=== PATIENT | male | born 1980 | race African-American/Black ===

== ENCOUNTER 2017-03-31 18:49 | Emergency (ER) | payer OTHER ==
[~2017-03-31] VITALS: Ht 167.6 cm; Wt 64.0 kg
[~2017-03-31 18:49] MED LIST: IBUP-1542 PO; MED4DP PO
[2017-03-31 18:57] VITALS: Ht 167.6 cm; Wt 64.0 kg
[2017-03-31] MEDS ORDERED: TETRACAINE 0.5% 4 ML OPH RIGHT EYE ONE (20:30)
[2017-03-31] MEDS ORDERED: OXYC-279 PO (20:44)
[2017-03-31] MEDS ORDERED: TBR.3OO RIGHT EYE (20:44)
[2017-03-31] MEDS ORDERED: ABAC1TAB12 PO (20:45)
[2017-03-31] MEDS ORDERED: AMOX1TAB10 PO (20:46)
[2017-03-31 21:05] VITALS: BP 119/76; PULSE 95; RESP 18; TEMP 98.6
--- NOTE | 2017-03-31 21:54 | ERD ---
ER Documentation Chief Complaint Date/Time DATE: 03/31/17 TIME: 21:27 Chief Complaint right eye pain and swelling x2 days HPI This is a 36-year-old male presents to the ER complaining of right eye pain and swelling for the last 2 days. Patient states that he has had his contacts on for the last month and that he took them out on Saturday when his eye began to hurt. Patient denies any eye discharge. He states that he does not know if the light bothers him because he is unable to open his eye secondary to swelling. Patient denies seeing any flashes of lights or any halos, however he is only able to see silhouettes out of his right eye. Patient denies any headache he denies any nausea or vomiting. Patient denies any trauma to the eye. He denies any fevers or chills. Patient was diagnosed with HIV in July , however he has not been taking his HIV medications over the last 3 months. Patient is unsure of his viral load or CD4 count. ROS 12 point review of systems was done, all negative except per HPI. Medications Home Meds Active Scripts Amoxicillin/Potassium Clav (Amox-Clav 875-125 mg Tablet) 875-125 mg Tab, 1 TAB PO BID for 7 Days, #14 TAB Prov:MARY TRUJILLO 03/31/17 Abacavir/Dolutegravir/Lamivudi (Triumeq Tablet) 1 Each Tablet, 1 EACH PO QHS for 30 Days, TAB Prov:CASSANDRAMARY FRANKLIN 03/31/17 Tobramycin Sulfate* (Tobrex*) 3.5 Gm Oint..gm., 1 APPLIC RIGHT EYE TID for 7 Days, EA Prov:MARY TRUJILLO 03/31/17 Oxycodone HCl/Acetaminophen (Percocet 5-325 mg Tablet) 1 Each Tablet, 1 EACH PO Q6, #10 TAB Prov:MARY TRUJILLO 03/31/17 Ibuprofen* (Motrin*) 600 Mg Tab, 600 MG PO Q6, #30 TAB Prov:MARY TRUJILLO 07/20/16 Methylprednisolone* (Medrol* DOSE PACK) 4 Mg/Dose-Pack Tab.ds.pk, 4 MG PO . DIRECTED for 6 Days, PACKET Prov:MARY TRUJILLO 07/20/16 Ibuprofen* (Motrin*) 600 Mg Tab, 600 MG PO Q6, #20 TAB Prov:MARJORIE RUIZ I. PEDIATRIC PSYCHIATRIST 09/09/15 Allergies Allergies: Coded Allergies: No Known Allergy (Unverified , 07/20/16) PMhx/Soc History of Surgery: Yes (eye surgery as a child, right jaw) Anesthesia Reaction: No Hx Neurological Disorder: No Hx Respiratory Disorders: No Hx Cardiac Disorders: No Hx Psychiatric Problems: No Hx Miscellaneous Medical Probl: No Hx Alcohol Use: Yes (quit 2012) Hx Substance Use: Yes (crystal meth/marijuana/coke quit 2012) Hx Tobacco Use: Yes (quit 2012) Smoking Status: Former smoker Physical Exam Vitals Vital Signs Date Time Temp Pulse Resp B/P Pulse Ox O2 Delivery O2 Flow Rate FiO2 03/31/17 21:05 98.6 95 18 119/76 98 Room Air 03/31/17 18:57 98.8 99 18 99/60 99 Physical Exam GENERAL: The patient is well developed and appropriate for usual state of health , in no apparent distress. HEENT: Atraumatic. Patient's eye is closed, he is unable to open eye. When I eye open there is injection of the conjunctiva and there is a visible corneal ulceration to the middle of the eye. There is some swelling of the eyelids. I am unable to see pupils secondary to corneal ulceration. Patient is able to move eye without complaints of pain. No limitation in upward gaze. No subconjunctival hemorrhage no obvious foreign body. no evidence of globe rupture. No hyphemas or hypopion's. CHEST: Clear to auscultation bilaterally. There are no rales, wheezes or rhonchi. HEART: Regular rate and rhythm. No murmurs, clicks, rubs or gallops. NEURO: Alert and oriented. SKIN: There is no apparent rash or petechia. The skin is warm and dry. Results 24 hrs Current Medications Medications (Trade) Dose Ordered Sig/Isauro Route PRN Reason Start Time Stop Time Status Last Admin Dose Admin Tetracaine HCl (Tetracaine 0.5% Steri-Unit Lacy) 1 drop ONCE ONCE RIGHT EYE 03/31/17 20:30 03/31/17 20:31 DC 03/31/17 20:13 Procedures/MDM Subconjunctival hemorrhage, bacterial conjunctivitis, viral conjunctivitis, allergic conjunctivitis,orbital cellulitis, hyphema, corneal abrasion, keratitis , uveitis, angle-closure glaucoma, retinal detachment, ruptured globe, retrobulbar hemorrhage, CMV keratitis. This is a 36-year-old male presents to the ER with right eye pain and swelling for the last 2 days. There was a visual corneal ulceration to the patient's right eye. Patient is HIV positive and he is not compliant with his medication. Patient will be sent home with tobramycin and with Augmentin. Patient had his contacts in for a month, suspicion for pseudomonas is high. Suspicion for orbital cellulitis is low as he does not have any painful extraoccular movements or ophthalmoplegia with diplopia, however patient does have some redness of his eyelid possibly preseptal cellulitis. Unable to rule out infection with CMV, patient urgently needs to follow-up with an hoisting engine operator. He was given information to [facility]. He was also given a refill of his HIV medications, I thoroughly discussed the importance of continuing with his medications. Patient stated that he could get to [facility] and stated he would go tomorrow. I explained to patient that he may lose his vision or even lose his life if his eye gets any worse. Patient understands and agrees with plan. Patient is afebrile and well-appearing otherwise. I discussed this case with my supervising physician Dr. Dumont who agrees with my medical decision making. Departure Diagnosis: Primary Impression: Corneal ulcer Condition: Stable Patient Instructions: Corneal Ulcer Referrals: [facility] Hours: Mon - Sat 9:00 AM - 5:00 PM Additional Instructions: SPECIALIST: YOU HAVE A MEDICAL CONDITION WHICH REQUIRES YOU TO SEE A SPECIALIST WITHIN THE NEXT 1-2 DAYS. PLEASE FOLLOW UP WITH YOUR PRIMARY PHYSICIAN FOR REFFERAL.IF YOU DO NOT HAVE A PRIMARY CARE PHYSICIAN AND/OR YOU CAN NOT AFFORD TO SEE A PHYSICIAN THE FOLLOWING RESOURCES HAVE BEEN SUPPLIED TO YOU. IT IS YOUR RESPONSIBILITY TO BE SEEN BY THE SPECIALIST YOU MUST SEE AN OPTHALMOLOGIST SOON POSSIBLE! MARY TRUJILLO Mar 31, 2017 21:39
== END 2017-03-31 21:06 | disposition home or self-care (01) ==
LOC: E/R 18:49 → FTE 21:06
DX: H16.011 Central corneal ulcer, right eye (principal); Z87.891 Personal history of nicotine dependence
CPT/HCPCS: Z7502; Z7610; 99284

== ENCOUNTER 2017-07-02 03:20 | Emergency (ER) | payer OTHER ==
[~2017-07-02] VITALS: Ht 175.3 cm; Wt 72.2 kg
[~2017-07-02 03:20] MED LIST changes: +ABAC1TAB12 PO; +AMOX1TAB10 PO; +OXYC-279 PO; +TBR.3OO RIGHT EYE
[2017-07-02 03:36] VITALS: Ht 175.3 cm; Wt 72.2 kg
[2017-07-02] MEDS ORDERED: SOD CHLORIDE 0.9% 1,000 ML IV ONE (06:30)
--- NOTE | 2017-07-02 06:30 | ERA ---
ER Documentation Chief Complaint Date/Time DATE: 07/02/17 TIME: 06:22 Chief Complaint chills body aches, fever, cough runny nose x1 week HPI 36-year-old male with a history of HIV presenting with a chief complaint of general malaise and cough 2 weeks. Patient has not taken HIV meds in 2 months. States the cough is purulent with yellow color. Patient is also reporting chills. Has not taken any medications to relieve the current symptoms. Denies nausea, vomiting, diarrhea, constipation, headache, meningismus. Patient has no other complaints and describes no other associated manifestations. Nursing notes have been reviewed and are consistent with history given. ROS All systems reviewed and are negative except as per history of present illness. Medications Home Meds Active Scripts Amoxicillin/Potassium Clav (Amox-Clav 875-125 mg Tablet) 875-125 mg Tab, 1 TAB PO BID for 7 Days, #14 TAB Prov:MARY TRUJILLO 03/31/17 Abacavir/Dolutegravir/Lamivudi (Triumeq Tablet) 1 Each Tablet, 1 EACH PO QHS for 30 Days, TAB Prov:MARY TRUJILLO 03/31/17 Tobramycin Sulfate* (Tobrex*) 3.5 Gm Oint..gm., 1 APPLIC RIGHT EYE TID for 7 Days, EA Prov:MARY TRUJILLO 03/31/17 Oxycodone HCl/Acetaminophen (Percocet 5-325 mg Tablet) 1 Each Tablet, 1 EACH PO Q6, #10 TAB Prov:MARY TRUJILLO 03/31/17 Ibuprofen* (Motrin*) 600 Mg Tab, 600 MG PO Q6, #30 TAB Prov:MARY TRUJILLO 07/20/16 Methylprednisolone* (Medrol* DOSE PACK) 4 Mg/Dose-Pack Tab.ds.pk, 4 MG PO . DIRECTED for 6 Days, PACKET Prov:MARY TRUJILLO 07/20/16 Ibuprofen* (Motrin*) 600 Mg Tab, 600 MG PO Q6, #20 TAB Prov:MARJORIE RUIZ NP 09/09/15 Allergies Allergies: Coded Allergies: No Known Allergy (Unverified , 07/20/16) PMhx/Soc Medical and Surgical Hx: pt denies Medical Hx, pt denies Surgical Hx History of Surgery: Yes (eye surgery as a child, right jaw) Anesthesia Reaction: No Hx Neurological Disorder: No Hx Respiratory Disorders: No Hx Cardiac Disorders: No Hx Psychiatric Problems: No Hx Miscellaneous Medical Probl: No Hx Alcohol Use: No Hx Substance Use: No Hx Tobacco Use: No Physical Exam Vitals Vital Signs Date Time Temp Pulse Resp B/P Pulse Ox O2 Delivery O2 Flow Rate FiO2 07/02/17 07:00 99.6 98 18 100/58 100 Room Air 07/02/17 03:36 98.6 114 20 107/52 95 Physical Exam Const: Mild distress. Laying in bed on initial presentation. Head: Atraumatic Eyes: Normal Conjunctiva ENT: Normal External Ears, Nose and Mouth. Neck: Full range of motion..~ No meningismus. Resp: Clear to auscultation bilaterally Cardio: Regular rate and rhythm, no murmurs Abd: Soft, non tender, non distended. Normal bowel sounds Skin: No petechiae or rashes Back: No midline or flank tenderness Ext: No cyanosis, or edema Neur: Awake and alert Psych: Normal Mood and Affect Result Diagram: 07/02/17 0640 07/02/17 0640 Results 24 hrs Laboratory Tests Test 07/02/17 06:40 White Blood Count 9.210^3/ul Red Blood Count 3.5610^6/ul Hemoglobin 10.8g/dl Hematocrit 32.5% Mean Corpuscular Volume 91.3fl Mean Corpuscular Hemoglobin 30.3pg Mean Corpuscular Hemoglobin Concent 33.2g/dl Red Cell Distribution Width 14.3% Platelet Count 42539^3/UL Mean Platelet Volume 10.9fl Neutrophils % 64.6% Lymphocytes % 23.5% Monocytes % 8.9% Eosinophils % 2.0% Basophils % 0.2% Nucleated Red Blood Cells % 0.0/100WBC Neutrophils # 6.010^3/ul Lymphocytes # 2.210^3/ul Monocytes # 0.810^3/ul Eosinophils # 0.210^3/ul Basophils # 0.010^3/ul Nucleated Red Blood Cells # 0.010^3/ul Prothrombin Time 12.8Sec Prothrombin Time Ratio 1.0 INR International Normalized Ratio 0.96 Activated Partial Thromboplast Time 26.8Sec Sodium Level 135mmol/L Potassium Level 3.8mmol/L Chloride Level 97mmol/L Carbon Dioxide Level 31mmol/L Anion Gap 11 Blood Urea Nitrogen 13mg/dl Creatinine 0.98mg/dl Glucose Level 100mg/dl Calcium Level 8.4mg/dl Total Bilirubin 0.0mg/dl Direct Bilirubin 0.00mg/dl Indirect Bilirubin 0.0mg/dl Aspartate Amino Transf (AST/SGOT) 28IU/L Alanine Aminotransferase (ALT/SGPT) 27IU/L Alkaline Phosphatase 80IU/L Total Protein 9.0g/dl Albumin 3.3g/dl Globulin 5.70g/dl Albumin/Globulin Ratio 0.57 Current Medications Medications (Trade) Dose Ordered Sig/Isauro Route PRN Reason Start Time Stop Time Status Last Admin Dose Admin Sodium Chloride (NS) 1,000 ml @ 1,000 mls/hr Q1H ONCE IV 07/02/17 06:30 07/02/17 07:29 DC 07/02/17 07:05 Procedures/MDM 36-year-old male history of HIV. Patient has not taken HIV medications in the past 2 months. Patient is complaining of feeling general malaise, fevers, chills and cough. Patient was given 1 L normal saline bolus, Tylenol 650 mg p.o. in the ED. Labs are ordered and revealed the following: CBC, CMP, PT/PTT, lipase, urinalysis: All within normal limits. X-ray was read by the radiologist given the following impression: Unremarkable EKG was ordered, read by my attending as regular rate, regular rhythm, no ST elevation or depression, no T-wave abnormalities, normal axis, and good baseline. At this time a very little suspicion for serious bacterial infection including but not limited to meningitis, pneumonia, acute abdomen, and other opportunistic infections. I have spoke with the patient regarding their condition and future management. I recommended ibuprofen [id number] for discomfort. They have verbally responded that they understand their status and treatment plan. The patients vitals are stable, and their current condition is appropriate for discharge. The patient will be given discharge instructions with return precautions. Departure Diagnosis: Primary Impression: Bronchitis Additional Impression: Cough Condition: Stable Additional Instructions: Follow up with your PCP within the next 1-3 days for a more thorough evaluation and a possible referral to a specialist. Return the the emergency department immediately if symptoms worsen or change. If you have any questions regarding medications, ask your pharmacist or us before you leave. JAMES CHANG PA-C Jul 02, 2017 06:30
[2017-07-02 06:57] LABS: BASOPHILS % 0.2 % (0.0-2.0); EOSINOPHILS # 0.2 10^3/ul (0.0-0.5); HEMATOCRIT 32.5 % (42.0-52.0); HEMOGLOBIN 10.8 g/dl (14.0-18.0); LYMPHOCYTES # 2.2 10^3/ul (0.8-2.9); LYMPHOCYTES % 23.5 % (15.0-51.0); MEAN CORPUSCULAR HEMOGLOBIN 30.3 pg (29.0-33.0); MEAN CORPUSCULAR HGB CONC 33.2 g/dl (32.0-37.0); MEAN CORPUSCULAR VOLUME 91.3 fl (82.0-101.0); MONOCYTE # 0.8 10^3/ul (0.3-0.9); MONOCYTES % 8.9 % (0.0-11.0); NEUTROPHILS % 64.6 % (39.0-77.0); PLATELET COUNT 228 10^3/UL (140-415); POSITIVE DIFF @See below; RED BLOOD COUNT 3.56 10^6/ul (4.70-6.10); RED CELL DISTRIBUTION WIDTH 14.3 % (11.5-14.5); WHITE BLOOD COUNT 9.2 10^3/ul (4.8-10.8)
[2017-07-02 07:05] LABS: MEAN PLATELET VOLUME 10.9 fl (7.4-10.4)
[2017-07-02 07:19] LABS: ALBUMIN 3.3 g/dl (3.3-4.9); ALBUMIN/GLOBULIN RATIO 0.57; CALCIUM 8.4 mg/dl (8.4-10.2); CREATININE 0.98 mg/dl (0.61-1.24); POTASSIUM 3.8 mmol/L (3.5-5.1)
[2017-07-02 07:25] LABS: INR 0.96; PARTIAL THROMBOPLASTIN TIME 26.8 Sec (25.0-35.0); PROTIME 12.8 Sec (12.2-14.2)
--- NOTE | 2017-07-02 07:45 | RADRPT ---
PROCEDURE: XR Chest 1 View. CLINICAL INDICATION: Shortness of breath. Small sepsis. TECHNIQUE: AP view of the chest was obtained. COMPARISON: CR CHEST 09/09/2015 FINDINGS: The cardiomediastinal silhouette is within normal limits. Patchy infiltrates are identified in the r ight lower lobe. Atelectasis versus mild infiltrates are seen at the left lung base. Osseous structu res are intact. IMPRESSION: Patchy infiltrates in the right lower lobe. Atelectasis versus mild infiltrates at the left lung base. RPTAT: AA .Edgar Walker MD, MD Date Time Electronically viewed and signed by .Edgar Walker MD, on 07/02/2017 07:44 .P/
[2017-07-02 08:44] VITALS: BP 101/57; PULSE 92; RESP 17; TEMP 99.8
== END 2017-07-02 08:46 | disposition home or self-care (01) ==
LOC: FTE 03:20
DX: J40 Bronchitis, not specified as acute or chronic (principal); R05 Cough; R06.02 Shortness of breath
CPT/HCPCS: 36415; 71010; 80053; 85025; 85610; 85730; 93005; J7030; Z7502

== ENCOUNTER 2017-08-31 12:19 | Emergency (ER) | payer OTHER ==
[~2017-08-31] VITALS: Ht 175.3 cm; Wt 64.0 kg
[2017-08-31 12:22] VITALS: Ht 175.3 cm; Wt 64.0 kg
[2017-08-31] MEDS ORDERED: CEFTRIAXONE 250 MG INJ IM ONE (14:30)
[2017-08-31] MEDS ORDERED: AZITHROMYCIN 250 MG TAB PO ONE (14:30)
[2017-08-31] MEDS ORDERED: LIDOCAINE 1% (MDV) 20 ML INJ SC ONE ×2 (14:30)
[2017-08-31 14:50] LABS: UR AMORPHOUS CRYSTAL FEW /HPF (NONE SEEN); UR BACTERIA FEW /HPF (NONE SEEN); UR MUCUS FEW /HPF (NONE SEEN); UR RBC 28 /HPF (0-5); UR SQUAMOUS EPITHELIAL CELL FEW /HPF (FEW)
[2017-08-31 15:17] LABS: ADD UMIC YES; UR ASCORBIC ACID 40 mg/dL (NEGATIVE); UR BILIRUBIN (Dip) NEGATIVE (NEGATIVE); UR BLOOD (Dip) NEGATIVE (NEGATIVE); UR CLARITY CLOUDY (CLEAR); UR COLOR YELLOW (YELLOW); UR GLUCOSE (Dip) NEGATIVE (NEGATIVE); UR KETONES (Dip) TRACE mg/dL (NEGATIVE); UR LEUKOCYTE ESTERASE (Dip) 3+ Leu/ul (NEGATIVE); UR NITRITE (Dip) NEGATIVE (NEGATIVE); UR TOTAL PROTEIN (Dip) 1+ mg/dl (NEGATIVE); UR UROBILINOGEN (Dip) 2+ mg/dL (NEGATIVE)
[2017-08-31] MEDS ORDERED: CIPR500T4 PO (15:24)
--- NOTE | 2017-08-31 15:26 | ERD ---
ER Documentation Chief Complaint Chief Complaint PAINFUL URINATION X 1 WEEKS HPI This a 37-year-old male who presents the emergency department today complaining of burning and pain with urination. States I think I have a urinary tract infection". States he has had symptoms for 2 weeks. States that he has drainage from his penis. States he is HIV positive. Denies any fevers or chills, abdominal pain. ROS All systems reviewed and are negative except as per history of present illness. Medications Home Meds Active Scripts Ciprofloxacin Hcl* (Ciprofloxacin Hcl*) 500 Mg Tablet, 500 MG PO BID for 7 Days , TAB Prov:KEITH BALL PA-C 08/31/17 Amoxicillin/Potassium Clav (Amox-Clav 875-125 mg Tablet) 875-125 mg Tab, 1 TAB PO BID for 7 Days, #14 TAB Prov:MARY TRUJILLO 03/31/17 Abacavir/Dolutegravir/Lamivudi (Triumeq Tablet) 1 Each Tablet, 1 EACH PO QHS for 30 Days, TAB Prov:MARY TRUJILLO 03/31/17 Tobramycin Sulfate* (Tobrex*) 3.5 Gm Oint..gm., 1 APPLIC RIGHT EYE TID for 7 Days, EA Prov:MARY TRUJILLO 03/31/17 Oxycodone HCl/Acetaminophen (Percocet 5-325 mg Tablet) 1 Each Tablet, 1 EACH PO Q6, #10 TAB Prov:MARY TRUJILLO 03/31/17 Ibuprofen* (Motrin*) 600 Mg Tab, 600 MG PO Q6, #30 TAB Prov:MARY TRUJILLO 07/20/16 Methylprednisolone* (Medrol* DOSE PACK) 4 Mg/Dose-Pack Tab.ds.pk, 4 MG PO . DIRECTED for 6 Days, PACKET Prov:MARY TRUJILLO 07/20/16 Ibuprofen* (Motrin*) 600 Mg Tab, 600 MG PO Q6, #20 TAB Prov:MARJORIE RUIZ NP 09/09/15 Allergies Allergies: Coded Allergies: No Known Allergy (Unverified , 07/20/16) PMhx/Soc History of Surgery: Yes (eye surgery as a child, right jaw) Anesthesia Reaction: No Hx Neurological Disorder: No Hx Respiratory Disorders: No Hx Cardiac Disorders: No Hx Psychiatric Problems: No Hx Miscellaneous Medical Probl: No Hx Alcohol Use: No Hx Substance Use: No Hx Tobacco Use: No Physical Exam Vitals Vital Signs Date Time Temp Pulse Resp B/P Pulse Ox O2 Delivery O2 Flow Rate FiO2 08/31/17 12:22 98.6 104 18 107/71 98 Physical Exam Const: NAD Head: Atraumatic Eyes: Normal Conjunctiva ENT: Normal External Ears, Nose and Mouth. Neck: Full range of motion..~ No meningismus. Resp: Clear to auscultation bilaterally Cardio: Regular rate and rhythm, no murmurs Abd: Soft, non tender, non distended. Normal bowel sounds : Circumcised penis testicles descended bilaterally nontender with evidence of mucopurulent drainage from urethra. Skin: No petechiae or rashes Back: No midline or flank tenderness Neur: Awake and alert Psych: Normal Mood and Affect Results 24 hrs Laboratory Tests Test 08/31/17 14:16 Urine Color YELLOW Urine Clarity CLOUDY Urine pH 6.0 Urine Specific [place] 1.030 Urine Ketones TRACEmg/dL Urine Nitrite NEGATIVEmg/dL Urine Bilirubin NEGATIVEmg/dL Urine Urobilinogen 2+mg/dL Urine Leukocyte Esterase 3+Cyndy/ul Urine Microscopic RBC 28/HPF Urine Microscopic WBC > 182/HPF Urine Squamous Epithelial Cells FEW/HPF Urine Calcium Oxalate Crystals FEW/HPF Urine Amorphous Crystals FEW/HPF Urine Bacteria FEW/HPF Urine Mucus FEW/HPF Urine Hemoglobin NEGATIVEmg/dL Urine Glucose NEGATIVEmg/dL Urine Total Protein 1+mg/dl Current Medications Medications (Trade) Dose Ordered Sig/Iasuro Route PRN Reason Start Time Stop Time Status Last Admin Dose Admin Lidocaine (Xylocaine 1% (Mdv) 20 ml) 20 ml ONCE ONCE SC 08/31/17 14:30 08/31/17 14:31 DC 08/31/17 14:22 Ceftriaxone Sodium (Rocephin) 250 mg ONCE ONCE IM 08/31/17 14:30 08/31/17 14:31 DC 08/31/17 14:22 Lidocaine (Xylocaine 1% (Mdv) 20 ml) 20 ml ONCE ONCE SC 08/31/17 14:30 08/31/17 14:31 DC 08/31/17 14:22 Azithromycin (Zithromax) 1,000 mg ONCE ONCE PO 08/31/17 14:30 08/31/17 14:31 DC 08/31/17 14:22 Procedures/MDM This is a 37 -year-old male who presents to the emergency department today complaining of burning and pain with urination and discharge from his penis for the past 2 weeks. On physical exam patient had mucopurulent drainage from his urethra. His symptoms at this time most consistent with urethritis likely caused by gonorrhea or chlamydia and dysuria. Patient indicated he has had unprotected sex with a few partners. I also obtain a UA given patient's complaints of dysuria UA shows 3+ leukocyte esterase. Negative nitrates. Greater than 182 microscopic white blood cells. 28 microscopic red blood cells. Urine sent for culture Urine sent for gonorrhea and chlamydia Patient was given Rocephin and azithromycin here in the emergency department to treat gonorrhea and chlamydia. Given patient's UA and evidence of urinary tract infection I will give the patient a prescription for Cipro however I have explained to him that his urine bacteria is likely caused by the discharge from his penis. Patient was instructed to have all of his sexual partners treated and to wear condoms until all partners are treated. At this time the patient is stable for discharge and outpatient management. Patient should follow up with their PCP in the next 1-2 days. They may return to the emergency department sooner for any persistent or worsening of symptoms. Patient understood and agreed with the plan. Departure Diagnosis: Primary Impression: Urethritis Additional Impression: Dysuria Condition: Fair Patient Instructions: Understanding Urinary Tract Infections (UTIs), Older Adults and STDs, Urethritis, Male (Gc Vs. Chlam) Referrals: your PCP Additional Instructions: Call your primary care doctor TOMORROW for an appointment during the next 1-2 days.See the doctor sooner or return here if your condition worsens before your appointment time. Take antibiotics as prescribed. Make sure all of your sexual partners are treated. use barrier protection with condoms KEITH BALL PA-C Aug 31, 2017 15:26
== END 2017-08-31 16:01 | disposition home or self-care (01) ==
LOC: FTE 12:19
DX: N34.2 Other urethritis (principal); R30.0 Dysuria
CPT/HCPCS: 81001; 87086; 87591; 96372; J0696; Z7502; Z7610

== ENCOUNTER 2018-03-21 09:52 | Emergency (ER) | END 2018-03-21 10:37 | disposition home or self-care (01) ==

== ENCOUNTER 2018-10-14 06:43 | Emergency (ER) | payer OTHER ==
[~2018-10-14] VITALS: Ht 170.2 cm; Wt 62.1 kg
[~2018-10-14 06:43] MED LIST changes: +CIPR500T4 PO; +CPR3OO3.5 BOTH EYES
[2018-10-14 06:48] VITALS: BP 109/68; PULSE 88; RESP 16; Ht 170.2 cm; Wt 62.1 kg
[2018-10-14] MEDS ORDERED: ACETAMINOPHEN 325 MG TAB PO STA (07:00)
[2018-10-14] MEDS ORDERED: LIDOCAINE 2%/EPI MPF (SDV) 20 ML VIAL INJ STA (07:00)
[2018-10-14] MEDS ORDERED: DIPHTH/TET/ACEL PERTUSS (ADULT) 0.5 ML VIAL IM* ONE (07:00)
[2018-10-14] MEDS ORDERED: SULF1TAB31 PO (07:12)
[2018-10-14] MEDS ORDERED: CEPH-443 PO (07:12)
--- NOTE | 2018-10-14 08:15 | ERD ---
ER Documentation Chief Complaint Chief Complaint right thigh abscess x 2 weeks HPI 38-year-old male who is HIV positive presents ED with complaints of right thigh abscess times 2 weeks. Patient admits to swelling, redness, warmth and purulent drainage coming from upper lateral right thigh. Denies fever, chills, and all other symptoms. Patient is currently not being treated for HIV and has not followed up with his infectious disease doctor. Tetanus not up-to-date. Denies any history of IV drug abuse. ROS All systems reviewed and are negative except as per history of present illness. Medications Home Meds Active Scripts Cephalexin* (Keflex*) 500 Mg Capsule, 500 MG PO QID for 10 Days, CAP Prov:NNEKA CLEMENT PA-C 10/14/18 Sulfamethoxazole/Trimethoprim* (Bactrim Ds* Tablet) 1 Each Tablet, 1 TAB PO BID, #14 TAB Prov:NNEKA CLEMENT PA-C 10/14/18 Ciprofloxacin Opht* (Ciloxan*) 0.3%-3.5 Opht Oint, 1 APPLIC BOTH EYES TID for 7 Days, EA Prov:OPAL HOLGUIN MD 03/21/18 Ciprofloxacin Hcl* (Ciprofloxacin Hcl*) 500 Mg Tablet, 500 MG PO BID for 7 Days, TAB Prov:KEITH BALL PA-C 08/31/17 Amoxicillin/Potassium Clav (Amox-Clav 875-125 mg Tablet) 875-125 mg Tab, 1 TAB PO BID for 7 Days, #14 TAB Prov:MARY TRUJILLO 03/31/17 Abacavir/Dolutegravir/Lamivudi (Triumeq Tablet) 1 Each Tablet, 1 EACH PO QHS for 30 Days, TAB Prov:MARY TRUJILLO 03/31/17 Tobramycin Sulfate* (Tobrex*) 3.5 Gm Oint..gm., 1 APPLIC RIGHT EYE TID for 7 Days, EA Prov:MARY TRUJILLO 03/31/17 Oxycodone HCl/Acetaminophen (Percocet 5-325 mg Tablet) 1 Each Tablet, 1 EACH PO Q6, #10 TAB Prov:MARY TRUJILLO 03/31/17 Ibuprofen* (Motrin*) 600 Mg Tab, 600 MG PO Q6, #30 TAB Prov:MARY TRUJILLO 07/20/16 Methylprednisolone* (Medrol* DOSE PACK) 4 Mg/Dose-Pack Tab.ds.pk, 4 MG PO . DIRECTED for 6 Days, PACKET Prov:MARY TRUJILLO 07/20/16 Ibuprofen* (Motrin*) 600 Mg Tab, 600 MG PO Q6, #20 TAB Prov:MARJORIE RUIZ I. ASSEMBLY PERSON 09/09/15 Allergies Allergies: Coded Allergies: No Known Allergy (Unverified , 10/14/18) PMhx/Soc History of Surgery: Yes (eye surgery as a child, right jaw) Anesthesia Reaction: No Hx Neurological Disorder: No Hx Respiratory Disorders: No Hx Cardiac Disorders: No Hx Psychiatric Problems: No Hx Miscellaneous Medical Probl: No Hx Alcohol Use: No Hx Substance Use: No Hx Tobacco Use: No Smoking Status: Never smoker FmHx Family History: No diabetes Physical Exam Vitals Vital Signs Date Temp Pulse Resp B/P (MAP) Pulse Ox O2 O2 Flow FiO2 Time Delivery Rate 10/14/18 97.8 88 16 109/68 100 06:48 (82) Physical Exam Const: No acute distress Head: Atraumatic Eyes: Normal Conjunctiva ENT: Normal External Ears, Nose and Mouth. Neck: Full range of motion. No meningismus. Resp: Clear to auscultation bilaterally Cardio: Regular rate and rhythm, no murmurs Abd: Soft, non tender, non distended. Normal bowel sounds Skin: There is a 1-1/2 inch in diameter area of fluctuant mass on patient's right upper lateral thigh, with increased redness warmth and tenderness to palpation, no purulent drainage, no lymphatic streaking Back: No midline or flank tenderness Ext: No cyanosis, or edema Neur: Awake and alert Psych: Normal Mood and Affect Results 24 hrs Current Medications Medications Dose Sig/Isauro Start Time Status Last (Trade) Ordered Route PRN Stop Time Admin Dose Reason Admin Diphtheria/ 0.5 ml ONCE ONCE 10/14/18 DC 10/14/18 Tetanus/Acell IM* 07:00 10/14/18 07:16 Pertussis 07:02 (Adacel) Lidocaine/ 20 ml ONCE STAT 10/14/18 DC Epinephrine INJ 07:00 10/14/18 (Xylocaine 07:02 2%/ Epi Mpf(Sdv)) 650 mg ONCE STAT 10/14/18 DC 10/14/18 Acetaminophen PO 07:00 10/14/18 07:16 (Tylenol 07:02 Tab) Procedures/MDM PROCEDURES: Abscess Incision and Drainage with irrigation by me: Location: Right upper lateral thigh Anesthesia: [Local 1% Lidocaine with epinephrine] Technique: [Irrigated. Disrupted loculations w/ instrumentation] Packing: [None] Complications: [Neurovascularly intact post procedure] 48 hour wound check. Scar minimization instructions given. Patient's skin symptoms have stabilized while they have been evaluated in the department and are appropriate for outpatient care and work up. Exam and w/u not consistent w/ sepsis, deep space infection, or foreign body. ER COURSE: The patient was given [place] The medication was well tolerated and the patient reports improvement in symptoms. The patient was stable throughout ED course. I kept the patient and/or family informed of laboratory and diagnostic imaging results throughout the emergency room course. The patient was promptly evaluated and a treatment plan was devised based on H&P and other data. This plan was discussed with the patient who agreed and had no further questions or concerns prior to discharge. MEDICAL DECISION MAKING: This is a 38-year-old HIV-positive male who presents ED with abscess to right upper thigh times 2 weeks. Incision and draiange was performed in the ED without complication. There is no lymphatic streaking. Low suspicion for sepsis, deep space infection, compartment syndrome, cellulitis, neurovascular injury, tendon injury. Patient's vitals are stable and pt can be managed with close outpatient follow-up. Advised patient follow-up with primary care in the next 48 hours for wound check. Patient was advised to follow-up with infectious disease doctor. Patient was given multiple referral information for various infectious disease doctor. It was stressed to patient the importance of treating HIV and he agrees with this. Advised to return to ED with any worsening symptoms. DISPOSITION PLAN: We discussed follow up with the patient's primary care doctor within 24 to 48 hours. Patient counseled regarding my diagnostic impression and care plan. Prior to discharge all questions answered. Pt agrees with treatment plan and understands strict return precautions. Precautionary instructions provided including instructions to return to the ER if not improving or for any worsening or changing symptoms or concerns. SPECIALIST FOLLOW UP RECOMMENDED: Infectious disease Patient has been advised to follow up with primary care in 1-2 days. Disclaimer: Inadvertent spelling and grammatical errors are likely due to EHR/dictation software use and do not reflect on the overall quality of patient care. Also, please note that the electronic time recorded on this note does not necessarily reflect the actual time of the patient encounter. Departure Diagnosis: Primary Impression: Abscess Condition: Stable Patient Instructions: Abscess, Incision And Drainage Referrals: RASHAD SLOAN MD,Kenna Harman MD, MD, ALDON M.D. MIYASAKI, YOKO M.D. PHAN, MAI TUYET MD RADCHENKO, SVETLANA [facility] YOU HAVE RECEIVED A MEDICAL SCREENING EXAM AND THE RESULTS INDICATE THAT YOU DO NOT HAVE A CONDITION THAT REQUIRES URGENT TREATMENT IN THE EMERGENCY DEPARTMENT. FURTHER EVALUATION AND TREATMENT OF YOUR CONDITION CAN WAIT UNTIL YOU ARE SEEN IN YOUR DOCTORS OFFICE WITHIN THE NEXT 1-2 DAYS. IT IS YOUR RESPONSIBILITY TO MAKE AN APPOINTMENT FOR FOLOW-UP CARE. IF YOU HAVE A PRIMARY DOCTOR --you should call your primary doctor and schedule an appointment IF YOU DO NOT HAVE A PRIMARY DOCTOR YOU CAN CALL OUR PHYSICIAN REFERRAL HOTLINE AT IF YOU CAN NOT AFFORD TO SEE A PHYSICIAN YOU CAN CHOSE FROM THE FOLLOWING [facility] CLINICS [facility] [address] [facility]. [facility] [address] [facility]. [facility] [address] [facility] [facility] [address] [facility]. [facility] [address] [facility] [facility]. [address] Additional Instructions: Patient advised to return the emergency department in 48 hours for a wound check Patient advised to return to the ED immediately for new or worsening symptoms. Patient advised to follow up with primary care provider in the next 24-48 hours. Patient verbalized understanding and agrees with treatment plan and course of action. If patient has no primary care they may follow up with one of the [facility] clinics listed on the following page or one of the options listed below [facility] + [address] [address] or [facility] [address] [place] [address] or [facility] [address] [place] [address] NNEKA CLEMENT PA-C Oct 14, 2018 08:15
== END 2018-10-14 08:07 | disposition home or self-care (01) ==
LOC: FTE 06:43
DX: L02.415 Cutaneous abscess of right lower limb (principal); Z23 Encounter for immunization
CPT/HCPCS: 10060; 90471; 90715; Z7502; Z7610

== ENCOUNTER 2018-12-04 15:16 | Emergency (ER) | payer OTHER ==
[~2018-12-04] VITALS: Ht 167.6 cm; Wt 58.1 kg
[~2018-12-04 15:16] MED LIST changes: +CEPH-443 PO; +SULF1TAB31 PO
[2018-12-04 15:27] VITALS: BP 106/67; Ht 167.6 cm; Wt 58.1 kg
[2018-12-04] MEDS ORDERED: KETOROLAC 30 MG INJ IM STA (17:31)
[2018-12-04] MEDS ORDERED: D-ME118S24 PO (18:43)
[2018-12-04] MEDS ORDERED: AZIT250T PO (18:43)
[2018-12-04] MEDS ORDERED: ALBU18HF INHALATION (18:43)
--- NOTE | 2018-12-04 18:44 | ERD ---
ER Documentation Chief Complaint Chief Complaint Complains of a sore throat x 2 days ROS All systems reviewed and are negative except as per history of present illness. Medications Home Meds Active Scripts Albuterol Sulfate* (Ventolin HFA*) 18 Gm Hfa.aer.ad, 2 PUFF INHALATION Q4H PRN for shortness of breath or cough, #1 INHALER Prov:JAMES BA DO 12/04/18 D-Methorphan Hb/P-Epd HCl/Bpm (Gcbzwsggux-Ghkrcccgqfn-Ky Syr) 118 Ml Syrup, 5 ML PO Q4H PRN for COUGH, #1 BOTTLE Prov:JAMES BA DO 12/04/18 Azithromycin* (Zithromax*) 250 Mg Tablet, 250 MG PO .ZPACK DIRECTED for pneumonia for 5 Days, #6 TAB TAKE 500 MG (2 TABS) THE FIRST DAY THEN 250 MG (1 TAB) DAYS 2-5 Prov:JAMES BA DO 12/04/18 Cephalexin* (Keflex*) 500 Mg Capsule, 500 MG PO QID for 10 Days, CAP Prov:NNEKA CLEMENT PA-C 10/14/18 Sulfamethoxazole/Trimethoprim* (Bactrim Ds* Tablet) 1 Each Tablet, 1 TAB PO BID, #14 TAB Prov:NNEKA CLEMENT PA-C 10/14/18 Ciprofloxacin Opht* (Ciloxan*) 0.3%-3.5 Opht Oint, 1 APPLIC BOTH EYES TID for 7 Days, EA Prov:OPAL HOLGUIN MD 03/21/18 Ciprofloxacin Hcl* (Ciprofloxacin Hcl*) 500 Mg Tablet, 500 MG PO BID for 7 Days, TAB Prov:KEITH BALL PA-C 08/31/17 Amoxicillin/Potassium Clav (Amox-Clav 875-125 mg Tablet) 875-125 mg Tab, 1 TAB PO BID for 7 Days, #14 TAB Prov:MARY TRUJILLO 03/31/17 Abacavir/Dolutegravir/Lamivudi (Triumeq Tablet) 1 Each Tablet, 1 EACH PO QHS for 30 Days, TAB Prov:MARY TRUJILLO 03/31/17 Tobramycin Sulfate* (Tobrex*) 3.5 Gm Oint..gm., 1 APPLIC RIGHT EYE TID for 7 Days, EA Prov:MARY TRUJILLO 03/31/17 Oxycodone HCl/Acetaminophen (Percocet 5-325 mg Tablet) 1 Each Tablet, 1 EACH PO Q6, #10 TAB Prov:MARY TRUJILLO 03/31/17 Ibuprofen* (Motrin*) 600 Mg Tab, 600 MG PO Q6, #30 TAB Prov:MARY TRUJILLO 07/20/16 Methylprednisolone* (Medrol* DOSE PACK) 4 Mg/Dose-Pack Tab.ds.pk, 4 MG PO . DIRECTED for 6 Days, PACKET Prov:MARY TRUJILLO 07/20/16 Ibuprofen* (Motrin*) 600 Mg Tab, 600 MG PO Q6, #20 TAB Prov:MARJORIE RUIZ NP 09/09/15 Allergies Allergies: Coded Allergies: No Known Allergy (Unverified , 10/14/18) PMhx/Soc History of Surgery: Yes (eye surgery as a child, right jaw) Anesthesia Reaction: No Hx Neurological Disorder: No Hx Respiratory Disorders: No Hx Cardiac Disorders: No Hx Psychiatric Problems: No Hx Miscellaneous Medical Probl: No Hx Alcohol Use: No Hx Substance Use: No Hx Tobacco Use: No Smoking Status: Never smoker Physical Exam Vitals Vital Signs Date Temp Pulse Resp B/P (MAP) Pulse Ox O2 O2 Flow FiO2 Time Delivery Rate 12/04/18 98.8 120 20 106/67 96 15:27 (80) Physical Exam Const: No acute distress Head: Atraumatic Eyes: Normal Conjunctiva ENT: Normal External Ears, Nose and Mouth. Neck: Full range of motion. No meningismus. Resp: Clear to auscultation bilaterally Cardio: Regular rate and rhythm, no murmurs Abd: Soft, non tender, non distended. Normal bowel sounds Skin: No petechiae or rashes Back: No midline or flank tenderness Ext: No cyanosis, or edema Neur: Awake and alert Psych: Normal Mood and Affect Results 24 hrs Current Medications Medications Dose Sig/Isauro Start Time Status Last (Trade) Ordered Route PRN Stop Time Admin Dose Reason Admin Ketorolac 30 mg ONCE STAT 12/04/18 DC 12/04/18 Tromethamine IM 17:31 17:38 (Toradol) 12/04/18 17:45 Departure Diagnosis: Primary Impression: Pneumonia Condition: Fair Patient Instructions: Pneumonia (Adult) Referrals: COMMUNITY CLINICS YOU HAVE RECEIVED A MEDICAL SCREENING EXAM AND THE RESULTS INDICATE THAT YOU DO NOT HAVE A CONDITION THAT REQUIRES URGENT TREATMENT IN THE EMERGENCY DEPARTMENT. FURTHER EVALUATION AND TREATMENT OF YOUR CONDITION CAN WAIT UNTIL YOU ARE SEEN IN YOUR DOCTORS OFFICE WITHIN THE NEXT 1-2 DAYS. IT IS YOUR RESPONSIBILITY TO MAKE AN APPOINTMENT FOR FOLOW-UP CARE. IF YOU HAVE A PRIMARY DOCTOR --you should call your primary doctor and schedule an appointment IF YOU DO NOT HAVE A PRIMARY DOCTOR YOU CAN CALL OUR PHYSICIAN REFERRAL HOTLINE AT IF YOU CAN NOT AFFORD TO SEE A PHYSICIAN YOU CAN CHOSE FROM THE FOLLOWING [facility] [address] [facility]. [facility] [address] [facility]. [facility] [address] [facility] [address] [facility]. [facility] [address] [facility] [facility] [address] Additional Instructions: Call your primary care doctor TOMORROW for an appointment during the next 1-2 days.See the doctor sooner or return here if your condition worsens before your appointment time. JAMES BA DO Dec 04, 2018 18:44
[2018-12-04 18:49] VITALS: PULSE 98; RESP 20
== END 2018-12-04 18:49 | disposition home or self-care (01) ==
LOC: FTE 15:16
DX: J18.9 Pneumonia, unspecified organism (principal)
CPT/HCPCS: 71046; 96372; J1885; Z7502

== ENCOUNTER 2018-12-23 13:02 | Emergency (ER) | payer OTHER ==
[~2018-12-23] VITALS: Ht 175.3 cm; Wt 58.2 kg
[~2018-12-23 13:02] MED LIST changes: +ALBU18HF INHALATION; +AZIT250T PO; +D-ME118S24 PO
[2018-12-23 14:03] VITALS: Ht 175.3 cm; Wt 58.2 kg
[2018-12-23] MEDS ORDERED: ACETAMINOPHEN 500 MG TAB PO STA (15:59)
[2018-12-23] MEDS ORDERED: ALBUTEROL/IPRATROPIUM (NEB) 3 ML AMP HHN STA (15:59)
[2018-12-23] MEDS ORDERED: SYMB80120 INHALATION (16:26)
[2018-12-23] MEDS ORDERED: PRED20TA PO (16:26)
[2018-12-23] MEDS ORDERED: PRED5TAB PO (16:26)
[2018-12-23] MEDS ORDERED: predniSONE 20 MG TAB PO ONE (16:30)
[2018-12-23] MEDS ORDERED: PHEN30SP4 NASAL (16:33)
[2018-12-23] MEDS ORDERED: ALBU8.5H8 INH (16:33)
[2018-12-23] MEDS ORDERED: FLUT9.9S NASAL (16:33)
[2018-12-23] MEDS ORDERED: SODI30SP2 NS (16:35)
--- NOTE | 2018-12-23 16:45 | ERD ---
ER Documentation Chief Complaint Chief Complaint DX PNA ON 12/04; STILL SOB, PROD COUGH, ST, FEVER, HOARSE HPI This is a 38-year-old male who presents with complaint of cough continuing for 2 weeks after diagnosis of pneumonia. He was seen at this ER in December 04 where he was prescribed a course of azithromycin. States he has not had any fevers, but continues with a cough, his voice is muffled. He does not smoke although his roommate does smoke and he is exposed to cigarette smoke. States he has history of asthma as a child. No weight loss, no chest pain, denies wheezing. Recent travel or prolonged immobilization, no sick contacts. ROS All systems reviewed and are negative except as per history of present illness. Medications Home Meds Active Scripts Doxycycline Hyclate* (Doxycycline Hyclate*) 100 Mg Tablet.dr, 100 MG PO BID for 7 Days, #14 TAB Prov:SHEREE REECE NP 12/23/18 Sodium Chloride (Saline Nasal Sallis) 30 Ml Sallis, 30 ML NS BID for 10 Days, SPRAY Prov:SHEREE REECE NP 12/23/18 Albuterol Sulfate* (Proair HFA*) 8.5 Gm Hfa.aer.ad, 2 PUFF INH Q4, #1 INHALER Prov:SHEREE REECE NP 12/23/18 Fluticasone Propionate (Flonase Allergy Relief) 9.9 Ml Sallis.susp, 1 SPRAY NASAL BID, #1 BOTTLE TO EACH NOSTRIL Prov:SHEREE REECE NP 12/23/18 Prednisone* (Prednisone*) 20 Mg Tab, 20 MG PO DAILY for 4 Days, TAB Prov:SHEREE REECE NP 12/23/18 Budesonide-Formoterol Fumarate* (Symbicort*) 80-4.5 Inha, 2 PUFFS INHALATION BID for 30 Days, #1 EACH Prov:SHEREE REECE NP 12/23/18 Albuterol Sulfate* (Ventolin HFA*) 18 Gm Hfa.aer.ad, 2 PUFF INHALATION Q4H PRN for shortness of breath or cough, #1 INHALER Prov:JAMES BA DO 12/04/18 D-Methorphan Hb/P-Epd HCl/Bpm (Hrlfpdrudv-Mpextcokkfq-Mp Syr) 118 Ml Syrup, 5 ML PO Q4H PRN for COUGH, #1 BOTTLE Prov:JAMES BA DO 12/04/18 Azithromycin* (Zithromax*) 250 Mg Tablet, 250 MG PO .TRISTEN DIRECTED for p neumonia for 5 Days, #6 TAB TAKE 500 MG (2 TABS) THE FIRST DAY THEN 250 MG (1 TAB) DAYS 2-5 Prov:JAMES BA DO 12/04/18 Cephalexin* (Keflex*) 500 Mg Capsule, 500 MG PO QID for 10 Days, CAP Prov:NNEKA CLEMENT PA-C 10/14/18 Sulfamethoxazole/Trimethoprim* (Bactrim Ds* Tablet) 1 Each Tablet, 1 TAB PO BID, #14 TAB Prov:NNEKA CLEMENT PA-C 10/14/18 Ciprofloxacin Opht* (Ciloxan*) 0.3%-3.5 Opht Oint, 1 APPLIC BOTH EYES TID for 7 Days, EA Prov:OPAL HOLGUIN MD 03/21/18 Ciprofloxacin Hcl* (Ciprofloxacin Hcl*) 500 Mg Tablet, 500 MG PO BID for 7 Days, TAB Prov:KEITH BALL PA-C 08/31/17 Amoxicillin/Potassium Clav (Amox-Clav 875-125 mg Tablet) 875-125 mg Tab, 1 TAB PO BID for 7 Days, #14 TAB Prov:MARY TRUJILLO 03/31/17 Abacavir/Dolutegravir/Lamivudi (Triumeq Tablet) 1 Each Tablet, 1 EACH PO QHS for 30 Days, TAB Prov:MARY TRUJILLO 03/31/17 Tobramycin Sulfate* (Tobrex*) 3.5 Gm Oint..gm., 1 APPLIC RIGHT EYE TID for 7 Days, EA Prov:MARY TRUJILLO 03/31/17 Oxycodone HCl/Acetaminophen (Percocet 5-325 mg Tablet) 1 Each Tablet, 1 EACH PO Q6, #10 TAB Prov:MARY TRUJILLO 03/31/17 Ibuprofen* (Motrin*) 600 Mg Tab, 600 MG PO Q6, #30 TAB Prov:MARY TRUJILLO 07/20/16 Ibuprofen* (Motrin*) 600 Mg Tab, 600 MG PO Q6, #20 TAB Prov:MARJORIE RUIZ NP 09/09/15 Discontinued Scripts Phenylephrine Hcl (NASAL SPRAY) 30 Ml Sallis, 2 SPRAYS NASAL BID for 10 Days, #1 BOTTLE Prov:SHEREE REECE PROGRESSIVE ASSEMBLER AND FITTER 12/23/18 Prednisone* (Prednisone*) 5 Mg Tab, 4 MG PO BID for 6 Days, TAB 4 mg, 21 tabs Day 1= 6 (24 mg) Day 2 = 5 (20 mg) Day 3=4 (16 mg) Day 4=3 (12 mg) Day 5 = 2 (8 mg) Day 6=1 (4 mg) Prov:SHEREE REECE PROGRESSIVE ASSEMBLER AND FITTER 12/23/18 Methylprednisolone* (Medrol* DOSE PACK) 4 Mg/Dose-Pack Tab.ds.pk, 4 MG PO . DIRECTED for 6 Days, PACKET Prov:MARY TRUJILLO Ruthie 07/20/16 Allergies Allergies: Coded Allergies: No Known Allergy (Unverified , 10/14/18) PMhx/Soc History of Surgery: Yes (eye surgery as a child, right jaw) Anesthesia Reaction: No Hx Neurological Disorder: No Hx Respiratory Disorders: No Hx Cardiac Disorders: No Hx Psychiatric Problems: No Hx Miscellaneous Medical Probl: No Hx Alcohol Use: No Hx Substance Use: No Hx Tobacco Use: No FmHx Family History: No diabetes, No coronary disease, No other Physical Exam Vitals Vital Signs Date Temp Pulse Resp B/P (MAP) Pulse Ox O2 O2 Flow FiO2 Time Delivery Rate 12/23/18 112 18 93 21 16:42 12/23/18 99.6 128 18 104/75 93 14:03 (85) Physical Exam General: alert and oriented x4, no acute distress HEENT: normocephalic, atraumatic, PERRL, tympanic membranes normal, no nasal discharge, neck nontender without lymphadenopathy, pharynx nonerythematous, no lesions or exudate Cardiovascular: tachycardic, regular rhythm, normal S1 and S2, no murmur, normal peripheral perfusion Respiratory: lungs clear to auscultation without rales, without rhonchi, without wheezing, normal breath sounds, respirations non labored, normal air movement in lung laws. Rhonchorous cough observed Psychiatric: demonstrates good judgment and reason and normal affect during examination Results 24 hrs Current Medications Medications Dose Sig/Isauro Start Time Status Last (Trade) Ordered Route PRN Stop Time Admin Dose Reason Admin Albuterol/ 3 ml ONCE STAT 12/23/18 DC 12/23/18 Ipratropium HHN 15:59 16:42 (Duoneb) 12/23/18 16:13 1,000 mg ONCE STAT 12/23/18 DC 12/23/18 Acetaminophen PO 15:59 16:47 (Tylenol 12/23/18 16:13 Tab) Prednisone 40 mg ONCE ONCE 12/23/18 DC 12/23/18 (Prednisone) PO 16:30 16:47 12/23/18 16:31 Procedures/MDM At the time of discharge, vital signs stable, no respiratory distress. Differential diagnosis include but not limited to: Respiratory infection bacterial/viral/fungal. Influenza, pharyngitis, gastroenteritis, asthma, croup, bronchiolitis, allergies, GERD. Less likely foreign body aspiration, pneumonia . Physical examination and clinical presentation consistent most likely with viral syndrome. During the ED course the patient remained stable. Clinical impression discussed with the patient who agrees with management. The patient is stable to be treated outpatient and will be discharged home. Course of doxycycline to be initiated today as prior antibiotic course did not seem to be effective as evidenced by worsening of pneumonia. Multiple medications prescribed for asthma and postnasal drip control. Some side effects of prescribed medications (headache, rash, nausea, vomiting, diarrhea, interactions with other medications) were reviewed. The patient requires a follow up with the primary care provider in the next 48h. If symptoms persist, worsen or new symptoms develop, then patient should return to the ED immediately. Disclaimer: Inadvertent spelling and grammatical errors are likely due to EHR/dictation software use and do not reflect on the overall quality of patient care. Also, please note that the electronic time recorded on this note does not necessarily reflect the actual time of the patient encounter. Departure Diagnosis: Primary Impression: Asthma Condition: Stable Patient Instructions: Asthma Referrals: COMMUNITY CLINICS YOU HAVE RECEIVED A MEDICAL SCREENING EXAM AND THE RESULTS INDICATE THAT YOU DO NOT HAVE A CONDITION THAT REQUIRES URGENT TREATMENT IN THE EMERGENCY DEPARTMENT. FURTHER EVALUATION AND TREATMENT OF YOUR CONDITION CAN WAIT UNTIL YOU ARE SEEN IN YOUR DOCTORS OFFICE WITHIN THE NEXT 1-2 DAYS. IT IS YOUR RESPONSIBILITY TO MAKE AN APPOINTMENT FOR FOLOW-UP CARE. IF YOU HAVE A PRIMARY DOCTOR --you should call your primary doctor and schedule an appointment IF YOU DO NOT HAVE A PRIMARY DOCTOR YOU CAN CALL OUR PHYSICIAN REFERRAL HOTLINE AT IF YOU CAN NOT AFFORD TO SEE A PHYSICIAN YOU CAN CHOSE FROM THE FOLLOWING COMMUNITY CLINICS [facility] [address] [facility] [address] [facility] [facility] [address] [facility] [facility] [address] [facility] [address] [facility]. [facility] [address] Additional Instructions: 10 discharge thank you very much for allowing us to participate in your care. Your health and safety is our top priority at [facility]. Call your primary care doctor TOMORROW for an appointment during the next 2-4 days and bring all the information and medications prescribed. Have prescriptions filled and follow precisely the directions on the label. If the symptoms get worse and your provider is unavailable, return to the Emergency Department immediately. SHEREE REECE NP Dec 23, 2018 16:45
[2018-12-23] MEDS ORDERED: DOXY100T20 PO (17:20)
== END 2018-12-23 17:48 | disposition home or self-care (01) ==
LOC: FTE 13:02
DX: J45.901 Unspecified asthma with (acute) exacerbation (principal)
CPT/HCPCS: 71046; 94664; J7512; Z7502; Z7610

== ENCOUNTER 2019-03-09 02:44 | Emergency (ER) | payer OTHER ==
[~2019-03-09] VITALS: Ht 175.3 cm; Wt 65.2 kg
[~2019-03-09 02:44] MED LIST changes: +ALBU8.5H8 INH; +DOXY100T20 PO; +FLUT9.9S NASAL; -MED4DP PO; +PRED20TA PO; +SODI30SP2 NS; +SYMB80120 INHALATION
[2019-03-09 02:48] VITALS: BP 131/72; PULSE 139; RESP 20; Ht 175.3 cm; Wt 65.2 kg
[2019-03-09] MEDS ORDERED: SOD CHLORIDE 0.9% 500 ML IV STA (03:24)
--- NOTE | 2019-03-09 03:37 | ERD ---
ER Documentation Chief Complaint Chief Complaint C/O RECTAL BLEEDING HPI 38-year-old male here with complaints of bleeding from hemorrhoids. Patient has no history of hemorrhage. Denies fevers chills nausea vomiting. Denies any other current complaints. ROS All systems reviewed and are negative except as per history of present illness. Medications Home Meds Active Scripts Doxycycline Hyclate* (Doxycycline Hyclate*) 100 Mg Tablet.dr, 100 MG PO BID for 7 Days, #14 TAB Prov:SHEREE REECE NP 12/23/18 Sodium Chloride (Saline Nasal Carman) 30 Ml Carman, 30 ML NS BID for 10 Days, SPRAY Prov:SHEREE REECE NP 12/23/18 Albuterol Sulfate* (Proair HFA*) 8.5 Gm Hfa.aer.ad, 2 PUFF INH Q4, #1 INHALER Prov:SHEREE REECE NP 12/23/18 Fluticasone Propionate (Flonase Allergy Relief) 9.9 Ml Carman.susp, 1 SPRAY NASAL BID, #1 BOTTLE TO EACH NOSTRIL Prov:SHEREE REECE NP 12/23/18 Prednisone* (Prednisone*) 20 Mg Tab, 20 MG PO DAILY for 4 Days, TAB Prov:SHEREE REECE NP 12/23/18 Budesonide-Formoterol Fumarate* (Symbicort*) 80-4.5 Inha, 2 PUFFS INHALATION BID for 30 Days, #1 EACH Prov:SHEREE REECE NP 12/23/18 Albuterol Sulfate* (Ventolin HFA*) 18 Gm Hfa.aer.ad, 2 PUFF INHALATION Q4H PRN for shortness of breath or cough, #1 INHALER Prov:JAMES BA DO 12/04/18 D-Methorphan Hb/P-Epd HCl/Bpm (Daqybtiaib-Usalfavoyvs-Qp Syr) 118 Ml Syrup, 5 ML PO Q4H PRN for COUGH, #1 BOTTLE Prov:JAMES BA DO 12/04/18 Azithromycin* (Zithromax*) 250 Mg Tablet, 250 MG PO .ZPACK DIRECTED for pneumonia for 5 Days, #6 TAB TAKE 500 MG (2 TABS) THE FIRST DAY THEN 250 MG (1 TAB) DAYS 2-5 Prov:JAMES BA DO 12/04/18 Cephalexin* (Keflex*) 500 Mg Capsule, 500 MG PO QID for 10 Days, CAP Prov:NNEKA CLEMENT PA-C 10/14/18 Sulfamethoxazole/Trimethoprim* (Bactrim Ds* Tablet) 1 Each Tablet, 1 TAB PO BID, #14 TAB Prov:NNEKA CLEMENT PA-C 10/14/18 Ciprofloxacin Opht* (Ciloxan*) 0.3%-3.5 Opht Oint, 1 APPLIC BOTH EYES TID for 7 Days, EA Prov:OPAL HOLGUIN MD 03/21/18 Ciprofloxacin Hcl* (Ciprofloxacin Hcl*) 500 Mg Tablet, 500 MG PO BID for 7 Days, TAB Prov:KEITH BALL PA-C 08/31/17 Amoxicillin/Potassium Clav (Amox-Clav 875-125 mg Tablet) 875-125 mg Tab, 1 TAB PO BID for 7 Days, #14 TAB Prov:MARY TRUJILLO 03/31/17 Abacavir/Dolutegravir/Lamivudi (Triumeq Tablet) 1 Each Tablet, 1 EACH PO QHS for 30 Days, TAB Prov:MARY TRUJILLO 03/31/17 Tobramycin Sulfate* (Tobrex*) 3.5 Gm Oint..gm., 1 APPLIC RIGHT EYE TID for 7 Days, EA Prov:MARY TRUJILLO 03/31/17 Oxycodone HCl/Acetaminophen (Percocet 5-325 mg Tablet) 1 Each Tablet, 1 EACH PO Q6, #10 TAB Prov:MARY TRUJILLO 03/31/17 Ibuprofen* (Motrin*) 600 Mg Tab, 600 MG PO Q6, #30 TAB Prov:MARY TRUJILLO 07/20/16 Ibuprofen* (Motrin*) 600 Mg Tab, 600 MG PO Q6, #20 TAB Prov:MARJORIE RUIZ NP 09/09/15 Allergies Allergies: Coded Allergies: No Known Allergy (Unverified , 10/14/18) PMhx/Soc History of Surgery: Yes (eye surgery as a child, right jaw) Anesthesia Reaction: No Hx Neurological Disorder: No Hx Respiratory Disorders: No Hx Cardiac Disorders: No Hx Psychiatric Problems: No Hx Miscellaneous Medical Probl: No Hx Alcohol Use: No Hx Substance Use: No Hx Tobacco Use: No Smoking Status: Never smoker Physical Exam Vitals Vital Signs Date Temp Pulse Resp B/P (MAP) Pulse Ox O2 O2 Flow FiO2 Time Delivery Rate 03/09/19 97.4 139 20 131/72 92 02:48 (91) Physical Exam Const: No acute distress Head: Atraumatic Eyes: Normal Conjunctiva ENT: Normal External Ears, Nose and Mouth. Neck: Full range of motion. No meningismus. Resp: Clear to auscultation bilaterally Cardio: Regular rate and rhythm, no murmurs Abd: Soft, non tender, non distended. Normal bowel sounds Skin: No petechiae or rashes Back: No midline or flank tenderness Ext: No cyanosis, or edema Neur: Awake and alert Psych: Normal Mood and Affect Results 24 hrs Current Medications Medications Dose Sig/Isauro Start Time Status Last (Trade) Ordered Route PRN Stop Time Admin Dose Reason Admin Sodium 500 ml @ Q1H STAT 03/09/19 Chloride 500 mls/hr IV 03:24 03/09/19 04:23 Procedures/MDM Medical decision making: Patient here with reactivation hemorrhoid. Patient be discharged home Proctofoam and Colace. Follow with PCP. Return for worsening symptoms. Departure Diagnosis: Primary Impression: Hemorrhoid Hemorrhoid type: unspecified Qualified Codes: K64.9 - Unspecified hemorrhoids Condition: Stable SHAKA ROSADO Mar 09, 2019 03:37
[2019-03-09] MEDS ORDERED: HYDR10FO PR (03:38)
[2019-03-09] MEDS ORDERED: DOCU-144 PO (03:38)
--- NOTE | 2019-03-09 05:38 | QN ---
Documentation Comment Patient initially refused blood work. Became combative and demand this back to sleep. Claims that he was never seen by a physician even though I saw him when he immediately entered the room. At this point we negotiated the patient will have the blood work. His blood work was sounded oncoming physician Dr. Valdovinos. But his blood work is negative, patient will be sent home with Proctofojuan and SHAKA Mcnally Mar 09, 2019 05:38
== END 2019-03-09 07:11 | disposition home or self-care (01) ==
LOC: E/R 02:44
DX: K64.9 Unspecified hemorrhoids (principal)
CPT/HCPCS: 80053; 85025; 85610; 85730; J7040; Z7502; 99283

== ENCOUNTER 2019-03-14 19:21 | Emergency (ER) | payer OTHER ==
[~2019-03-14] VITALS: Ht 175.3 cm; Wt 63.2 kg
[~2019-03-14 19:21] MED LIST changes: +DOCU-144 PO; +HYDR10FO PR
[2019-03-14 19:23] VITALS: Ht 175.3 cm; Wt 63.2 kg
[2019-03-14] MEDS ORDERED: LIDOCAINE 1% (MPF) 5 ML VIAL INFIL ONE (20:30)
[2019-03-14] MEDS ORDERED: IBUPROFEN 600 MG TAB PO ONE (20:30)
[2019-03-14] MEDS ORDERED: CEPH-443 PO (22:42)
[2019-03-14] MEDS ORDERED: SULF1TAB31 PO (22:42)
[2019-03-14] MEDS ORDERED: IBUP-1541 PO (22:42)
--- NOTE | 2019-03-14 22:47 | ERD ---
ER Documentation Chief Complaint Chief Complaint ABSCESS TO R UPPER HIP X'S 4 DAYS HPI 38-year-old male no significant past history presents for right buttock abscess x4 days. He denies any fevers. He states he has about 9 out of 10 pain that is described as sharp, nonradiating. The pain is worse with movement. He has had prior similar symptoms a few months ago which was drained. Denies any chest pain or shortness of breath. No other modifying factors noted, no treatments tried at home. ROS All systems reviewed and are negative except as per history of present illness. Medications Home Meds Active Scripts Ibuprofen* (Ibuprofen*) 400 Mg Tablet, 400 MG PO Q6H PRN for PAIN, #30 TAB Prov:JAMES BA DO 03/14/19 Sulfamethoxazole/Trimethoprim* (Bactrim Ds* Tablet) 1 Each Tablet, 1 TAB PO BID for abscess for 7 Days, #14 TAB Prov:JAMES BA DO 03/14/19 Cephalexin* (Keflex*) 500 Mg Capsule, 500 MG PO TID for abscess for 7 Days, #21 CAP Prov:JAMES BA DO 03/14/19 Docusate Sodium* (Colace*) 100 Mg Capsule, 100 MG PO TID, #30 CAP Prov:SHAKA ROSADO. 03/09/19 Hydrocortisone/Pramoxine* (Proctofoam-HC*) 1%-10 Gm Foam, 1 APPLIC RI BID for 7 Days, EA Prov:SHAKA ROSADO 03/09/19 Doxycycline Hyclate* (Doxycycline Hyclate*) 100 Mg Tablet.dr, 100 MG PO BID for 7 Days, #14 TAB Prov:SHEREE REECE NP 12/23/18 Sodium Chloride (Saline Nasal [place]) 30 Ml [place], 30 ML NS BID for 10 Days, SPRAY Prov:SHEREE REECE NP 12/23/18 Albuterol Sulfate* (Proair HFA*) 8.5 Gm Hfa.aer.ad, 2 PUFF INH Q4, #1 INHALER Prov:SHEREE REECE NP 12/23/18 Fluticasone Propionate (Flonase Allergy Relief) 9.9 Ml [place].susp, 1 SPRAY NASAL BID, #1 BOTTLE TO EACH NOSTRIL Prov:SHEREE REECE NP 12/23/18 Prednisone* (Prednisone*) 20 Mg Tab, 20 MG PO DAILY for 4 Days, TAB Prov:HAYLEY REECEDonna CHEW 12/23/18 Budesonide-Formoterol Fumarate* (Symbicort*) 80-4.5 Inha, 2 PUFFS INHALATION BID for 30 Days, #1 EACH Prov:SHEREE REECE PUBLIC AFFAIRS MANAGER 12/23/18 Albuterol Sulfate* (Ventolin HFA*) 18 Gm Hfa.aer.ad, 2 PUFF INHALATION Q4H PRN for shortness of breath or cough, #1 INHALER Prov:JAMES BA 12/04/18 D-Methorphan Hb/P-Epd HCl/Bpm (Zekyncntol-Vpafpsyckua-Oe Syr) 118 Ml Syrup, 5 ML PO Q4H PRN for COUGH, #1 BOTTLE Prov:JAMES BA 12/04/18 Azithromycin* (Zithromax*) 250 Mg Tablet, 250 MG PO .ZPACK DIRECTED for pneumonia for 5 Days, #6 TAB TAKE 500 MG (2 TABS) THE FIRST DAY THEN 250 MG (1 TAB) DAYS 2-5 Prov:JESENIAJAMES 12/04/18 Cephalexin* (Keflex*) 500 Mg Capsule, 500 MG PO QID for 10 Days, CAP Prov:NNEKA CLEMENT PA-C 10/14/18 Sulfamethoxazole/Trimethoprim* (Bactrim Ds* Tablet) 1 Each Tablet, 1 TAB PO BID, #14 TAB Prov:NNEKA CLEMENT PA-C 10/14/18 Ciprofloxacin Opht* (Ciloxan*) 0.3%-3.5 Opht Oint, 1 APPLIC BOTH EYES TID for 7 Days, EA Prov:OPAL HOLGUIN MD 03/21/18 Ciprofloxacin Hcl* (Ciprofloxacin Hcl*) 500 Mg Tablet, 500 MG PO BID for 7 Days, TAB Prov:KEITH BALL PA-C 08/31/17 Amoxicillin/Potassium Clav (Amox-Clav 875-125 mg Tablet) 875-125 mg Tab, 1 TAB PO BID for 7 Days, #14 TAB Prov:MARY TRUJILLO 03/31/17 Abacavir/Dolutegravir/Lamivudi (Triumeq Tablet) 1 Each Tablet, 1 EACH PO QHS for 30 Days, TAB Prov:MARY TRUJILLO 03/31/17 Tobramycin Sulfate* (Tobrex*) 3.5 Gm Oint..gm., 1 APPLIC RIGHT EYE TID for 7 Days, EA Prov:MARY TRUJILLO 03/31/17 Oxycodone HCl/Acetaminophen (Percocet 5-325 mg Tablet) 1 Each Tablet, 1 EACH PO Q6, #10 TAB Prov:MARY TRUJILLO 03/31/17 Ibuprofen* (Motrin*) 600 Mg Tab, 600 MG PO Q6, #30 TAB Prov:MARY TRUJILLO 07/20/16 Ibuprofen* (Motrin*) 600 Mg Tab, 600 MG PO Q6, #20 TAB Prov:RUIZMARJORIE ROSEN I. PUBLIC AFFAIRS MANAGER 09/09/15 Allergies Allergies: Coded Allergies: No Known Allergy (Unverified , 10/14/18) PMhx/Soc History of Surgery: Yes (eye surgery as a child, right jaw) Anesthesia Reaction: No Hx Neurological Disorder: No Hx Respiratory Disorders: No Hx Cardiac Disorders: No Hx Psychiatric Problems: No Hx Miscellaneous Medical Probl: No Hx Alcohol Use: No Hx Substance Use: No Hx Tobacco Use: No Smoking Status: Never smoker FmHx Family History: No coronary disease Physical Exam Vitals Vital Signs Date Temp Pulse Resp B/P (MAP) Pulse Ox O2 O2 Flow FiO2 Time Delivery Rate 03/14/19 97.9 100 18 108/73 97 19:23 (85) Physical Exam Const: No acute distress Resp: Clear to auscultation bilaterally Cardio: Regular rate and rhythm, no murmurs Skin: Right buttock area of fluctuance about 2 cm with increased warmth Back: No midline or flank tenderness Ext: No cyanosis, or edema Neur: Awake and alert Psych: Normal Mood and Affect Results 24 hrs Current Medications Medications Dose Sig/Isauro Start Time Status Last (Trade) Ordered Route PRN Stop Time Admin Dose Reason Admin Lidocaine 5 ml ONCE ONCE 03/14/19 DC (Xylocaine INFIL 20:30 03/14/19 1% (Mpf)) 20:31 Ibuprofen 600 mg ONCE ONCE 03/14/19 DC 03/14/19 (Motrin) PO 20:30 03/14/19 20:30 20:31 Procedures/MDM Abscess Incision and Drainage with irrigation by me: Location: Right buttock Anesthesia: [Local 1% Lidocaine without epinephrine] Technique: [Irrigated. Disrupted loculations w/ instrumentation] Packing: [None] Complications: [Neurovascularly intact post procedure] 48 hour wound check. Scar minimization instructions given. Patient's skin symptoms have stabilized while they have been evaluated in the department and are appropriate for outpatient care and work up. Exam and w/u not consistent w/ sepsis, deep space infection, or foreign body. Medical Decision Making: Patient presents for right buttock lesion x4 days. Patient appeared well on physical exam. Physical examination consistent with an abscess. Incision and drainage was done, see procedure note above Patient was given Motrin in the ER with relief of symptoms. Prescription(s): Patient given prescription for supportive medication(s) as well as Bactrim and Keflex Patient advised regarding wound care as well as sitz bath keep the area draining. Advised to return to ER in 48 hours for wound check. Patient advised to follow up with PCP in 1-2 days. Patient advised to return to ED for new or worsening symptoms. Patient stable on discharge from the ED. Disclaimer: Inadvertent spelling and grammatical errors are likely due to EHR/dictation software use and do not reflect on the overall quality of patient care. Also, please note that the electronic time recorded on this note does not necessarily reflect the actual time of the patient encounter. Departure Diagnosis: Primary Impression: Abscess Condition: Fair Patient Instructions: Abscess, Incision And Drainage Referrals: [facility] YOU HAVE RECEIVED A MEDICAL SCREENING EXAM AND THE RESULTS INDICATE THAT YOU DO NOT HAVE A CONDITION THAT REQUIRES URGENT TREATMENT IN THE EMERGENCY DEPARTMENT. FURTHER EVALUATION AND TREATMENT OF YOUR CONDITION CAN WAIT UNTIL YOU ARE SEEN IN YOUR DOCTORS OFFICE WITHIN THE NEXT 1-2 DAYS. IT IS YOUR RESPONSIBILITY TO MAKE AN APPOINTMENT FOR FOLOW-UP CARE. IF YOU HAVE A PRIMARY DOCTOR --you should call your primary doctor and schedule an appointment IF YOU DO NOT HAVE A PRIMARY DOCTOR YOU CAN CALL OUR PHYSICIAN REFERRAL HOTLINE AT IF YOU CAN NOT AFFORD TO SEE A PHYSICIAN YOU CAN CHOSE FROM THE FOLLOWING COM [facility] [address] [facility] [address] [facility]. [facility] [address] [facility] [address] [facility] [facility] [address] [facility]. [facility] [address] Additional Instructions: Call your primary care doctor TOMORROW for an appointment during the next 1-2 days.See the doctor sooner or return here if your condition worsens before your appointment time. Return in 48 hours for wound check. JAMES BA DO Mar 14, 2019 22:47
[2019-03-14 22:55] VITALS: BP 110/75; PULSE 80; RESP 18
== END 2019-03-14 22:55 | disposition home or self-care (01) ==
LOC: FTE 19:21
DX: L02.31 Cutaneous abscess of buttock (principal)
CPT/HCPCS: 10060; Z7502; Z7610